=== PATIENT | male | born 1975 | race Caucasian/White ===

== ENCOUNTER 2021-03-01 17:02 | Observation (INO) | payer SELFPAY ==
[2021-03-01] VITALS (7 sets, daily range): BP systolic 140–159; BP diastolic 93–109; PULSE 72–92; RESP 15–23; TEMP 36.7–37.1; O2SAT 95–99; BMI 44.1
--- NOTE | 2021-03-01 17:16 | ED_ITS ---
Documented by User: Fer Denise DO 03/02/21 06:49 HPI - Chest Pain General: Chief Complaint: Chest Pain Stated Complaint: cp, diff breathing Time Seen by Provider: 03/01/21 17:13 History of Present Illness: HPI narrative: 45-year-old male presents emergency room complaining of chest pain for the last 2 hours. He has had a lot of nausea and vomiting as well. He was at rest when he began sitting watching television notes in his central portion of his chest radiating to his back and down into his abdomen at times. He has a lot of belching but he denies any dysuria urgency or frequency. He has no known history of coronary disease he does have a history of hypertension. He is a smoker. He has not recently been ill. He is not had any productive cough. He has been a little short of breath with the chest discomfort. MD complaint: chest pain Onset (ago): minute(s) Timing of current episode: constant Prior episodes: No Onset: during rest Pain location: substernal and left chest Pain radiation: none Quality: tightness Relieving factors: nothing Exacerbating factors: nothing Associated symptoms: Deny abdominal pain, dyspnea, fever(s), nausea or vomiting Review of Systems Const: Denies: fever(s), chills, body aches, change in appetite, fatigue or malaise ENMT: Denies: throat pain, ear or mastoid pain, nasal discharge or nasal conge stion Card: Denies: chest pain, edema, dyspnea on exertion or orthopnea Resp: Denies: dyspnea, productive cough or non-productive cough GI: Denies: abdominal pain, nausea, vomiting, hematemesis, coffee ground emesis, diarrhea, constipation, bloating, hematochezia or melena : Denies: flank pain, dysuria, urinary frequency or urinary urgency Skin/Breast: Denies: rash or pruritus Physical Exam Const: COMMON NORMALS: no acute distress GENERAL APPEARANCE: cooperative and comfortable ORIENTATION/CONSCIOUSNESS: Yes awake, Yes oriented to person, Yes oriented to place and Yes oriented to time HENMT: COMMON NORMALS: normocephalic, atraumatic and hearing grossly normal bilaterally HEAD & SCALP: normocephalic and atraumatic Eye: COMMON NORMALS: Equal, round and reactive pupils present, EOMs intact bilaterally, conjunctivae normal and no scleral icterus CONJUNCTIVA: Yes conjunctivae normal PUPIL: Yes Equal, round and reactive pupils present Neck/C-Spine: COMMON NORMALS: full ROM, no lymphadenopathy, supple and no JVD Lymph: LYMPHATIC: no lymphadenopathy noted and no lymphedema noted Resp: COMMON NORMALS: normal respiratory effort, No retractions, No use of accessory muscles and clear to auscultation bilaterally AUSCULTATION: clear to auscultation bilaterally Cardio: COMMON NORMALS: no JVD, regular rate, regular rhythm and No murmurs present (Cardio) RATE: regular rate RHYTHM: regular rhythm GI: COMMON NORMALS: Soft to palpation and No hepatosplenomegaly present AUSCULTATION: Yes normoactive bowel sounds PALPATION: Yes Soft to palpation, No Tenderness to palpation present (GI), No Guarding due to palpation present (GI) and Yes No hepatosplenomegaly present Extremity: COMMON NORMALS: normal to inspection, capillary refill normal, no clubbing, cyanosis or edema, no calf tenderness and no pedal edema Neuro: SENSORIUM/ORIENTATION: Yes oriented to person, Yes oriented to place and Yes oriented to time Skin: COMMON NORMALS: no rashes or lesions noted GENERAL SKIN EXAM: no rashes or lesions noted Course Vital Signs: Vital signs: Vital Signs Temperature 98.0 F 03/02/21 04:32 Pulse Rate 60 03/02/21 04:32 Respiratory Rate 18 03/02/21 04:32 Blood Pressure 122/74 03/02/21 04:32 Pulse Oximetry 98 03/02/21 04:32 MDM - Chest Pain MDM Narrative: Medical decision making narrative: Patient seen initially CT chest abdomen pelvis ordered as well as labs they are all pending pain medications given care turned over to Dr. Haq at change of shift see his notes for final diagnosis and disposition Lab Data: Labs: Lab Results 03/01/21 03/01/21 03/01/21 Range/Units 17:05 17:05 17:05 WBC 15.5 H (4.0-10.0) 10^3/ uL RBC 5.23 (4.1-5.3) 10^6/u L Hgb 15.2 (11.7-16.6) g/dL Hct 46.3 (42.0-52.0) % MCV 88.5 (80-94) fL MCH 29.1 (28.0-34.0) pg MCHC 32.8 (30.0-36.0) g/dL RDW 12.7 (12.1-15.1) % Plt Count 285 (130-400) 10^3/c mm MPV 9.3 (7.4-10.4) fL Neut % (Auto) 57.8 % Lymph % (Auto) 30.2 % [place] % (Auto) 10.4 % Eos % (Auto) 0.8 % Baso % (Auto) 0.5 % Neut # (Auto) 8.99 H (1.8-7.7) 10^3/u L Lymph # (Auto) 4.7 (0.8-4.8) 10^3/u L [place] # (Auto) 1.6 H (0.2-0.9) 10^3/u L Eos # (Auto) 0.1 (0.0-0.8) 10^3/u L Baso # (Auto) 0.1 (0.0-0.1) 10^3/u L Nucleated RBC % (a uto) 0 % Nucleated RBCs # 0.0 /100WBC Sodium 134 L (136-145) mmol/L Potassium 3.9 (3.5-5.1) mmol/L Chloride 99 (98-107) mmol/L Carbon Dioxide 23 (22-29) mmol/L Anion Gap 15.9 (5-19) BUN 9 (6-20) mg/dL Creatinine 0.7 (0.7-1.2) mg/dL GFR Calculation 120.9 (90-130) mL/min Glucose 107 (65-115) mg/dL Calculated Osmolal ity 277 L (285-295) mOsm/k g Calcium 8.5 (8.5-10.5) mg/dL Total Bilirubin 0.2 (0.15-1.2) mg/dL AST 18 (0-40) U/L ALT 17 (0-41) U/L Alkaline Phosphata se 110 (40-130) IU/L Troponin T Baselin e 6 (0-15) ng/L Troponin T 120 Min standing [place] (0-15) ng/L Delta Troponin T (0-10) ABS# Total Protein 6.4 L (6.6-8.7) g/dL Albumin 4.3 (3.5-5.2) g/dL Globulin 2.1 (1.3-4.6) g/dL Lipase 33 (13-60) U/L 03/01/21 Range/Units 19:42 WBC (4.0-10.0) 10^3/ uL RBC (4.1-5.3) 10^6/u L Hgb (11.7-16.6) g/dL Hct (42.0-52.0) % MCV (80-94) fL MCH (28.0-34.0) pg MCHC (30.0-36.0) g/dL RDW (12.1-15.1) % Plt Count (130-400) 10^3/c mm MPV (7.4-10.4) fL Neut % (Auto) % Lymph % (Auto) % [place] % (Auto) % Eos % (Auto) % Baso % (Auto) % Neut # (Auto) (1.8-7.7) 10^3/u L Lymph # (Auto) (0.8-4.8) 10^3/u L [place] # (Auto) (0.2-0.9) 10^3/u L Eos # (Auto) (0.0-0.8) 10^3/u L Baso # (Auto) (0.0-0.1) 10^3/u L Nucleated RBC % (a uto) % Nucleated RBCs # /100WBC Sodium (136-145) mmol/L Potassium (3.5-5.1) mmol/L Chloride (98-107) mmol/L Carbon Dioxide (22-29) mmol/L Anion Gap (5-19) BUN (6-20) mg/dL Creatinine (0.7-1.2) mg/dL GFR Calculation (90-130) mL/min Glucose (65-115) mg/dL Calculated Osmolal ity (285-295) mOsm/k g Calcium (8.5-10.5) mg/dL Total Bilirubin (0.15-1.2) mg/dL AST (0-40) U/L ALT (0-41) U/L Alkaline Phosphata se (40-130) IU/L Troponin T Baselin e (0-15) ng/L Troponin T 120 Min [place] 6.96 (0-15) ng/L Delta Troponin T 0.96 (0-10) ABS# Total Protein (6.6-8.7) g/dL Albumin (3.5-5.2) g/dL Globulin (1.3-4.6) g/dL Lipase (13-60) U/L EKG Data^: EKG 1: Attestation: I personally reviewed and interpreted this EKG as follows: EKG interpretation date: 03/01/21 EKG interpretation time: 17:10 Prior EKG tracings: not available for review Interpretation: Normal sinus rhythm with occasional PVCs rate of 77 normal DE interval no acute ST changes are noted Discharge Plan Discharge Patient Disposition: Admitted As Inpatient Admit Provider: Jasen Cintron Clinical Impression: Cholecystitis Condition: Stable Coding Level of Care Code ED Assisted Living Nursing Director for Chg Fwd Exam Comprehensive Documented by User: Ted Haq MD 03/01/21 22:20 HPI - Chest Pain General: Chief Complaint: Chest Pain Stated Complaint: cp, diff breathing Time Seen by Provider: 03/01/21 17:13 Physical Exam Const: COMMON NORMALS: no acute distress, patient oriented x3 and healthy appearing HENMT: COMMON NORMALS: normocephalic and atraumatic HEAD & SCALP: normocephalic and atraumatic Eye: COMMON NORMALS: Equal, round and reactive pupils present and EOMs intact bilaterally PUPIL: Yes Equal, round and reactive pupils present Neck/C-Spine: COMMON NORMALS: full ROM and supple Chest: COMMONS NORMALS: normal inspection of the chest and normal palpation of entire chest wall Resp: COMMON NORMALS: normal respiratory effort, No retractions, No use of accessory muscles and clear to auscultation bilaterally AUSCULTATION: clear to auscultation bilaterally Cardio: COMMON NORMALS: regular rate, regular rhythm and No murmurs present (Cardio) RATE: regular rate RHYTHM: regular rhythm GI: COMMON NORMALS: Normal to inspection, nondistended, normoactive bowel sounds present, Soft to palpation and no masses PALPATION: Yes Soft to palpation and Yes Tenderness to palpation present (GI) Details: RUQ Extremity: COMMON NORMALS: normal to inspection and full ROM Neuro: COMMON NORMALS: patient oriented x3, moves all extremities and no focal motor deficits Psych: COMMON NORMALS: mental status grossly normal, Normal thought process present and cooperative THOUGHT PROCESS: Normal thought process present Skin: COMMON NORMALS: no rashes or lesions noted and no wounds GENERAL SKIN EXAM: no rashes or lesions noted Course Vital Signs: Vital signs: Vital Signs Temperature 98.0 F 03/02/21 04:32 Pulse Rate 60 03/02/21 04:32 Respiratory Rate 18 03/02/21 04:32 Blood Pressure 122/74 03/02/21 04:32 Pulse Oximetry 98 03/02/21 04:32 MDM - Chest Pain MDM Narrative: Medical decision making narrative: Patient presents here with cholecystitis. Ultrasound and CT both showed findings consistent with cholecystitis. I spoke to surgeon Dr. Rodarte will admit at this time. Patient given IV antibiotics. Lab Data: Labs: Lab Results 03/01/21 03/01/21 03/01/21 Range/Units 17:05 17:05 17:05 WBC 15.5 H (4.0-10.0) 10^3/ uL RBC 5.23 (4.1-5.3) 10^6/u L Hgb 15.2 (11.7-16.6) g/dL Hct 46.3 (42.0-52.0) % MCV 88.5 (80-94) fL MCH 29.1 (28.0-34.0) pg MCHC 32.8 (30.0-36.0) g/dL RDW 12.7 (12.1-15.1) % Plt Count 285 (130-400) 10^3/c mm MPV 9.3 (7.4-10.4) fL Neut % (Auto) 57.8 % Lymph % (Auto) 30.2 % [place] % (Auto) 10.4 % Eos % (Auto) 0.8 % Baso % (Auto) 0.5 % Neut # (Auto) 8.99 H (1.8-7.7) 10^3/u L Lymph # (Auto) 4.7 (0.8-4.8) 10^3/u L [place] # (Auto) 1.6 H (0.2-0.9) 10^3/u L Eos # (Auto) 0.1 (0.0-0.8) 10^3/u L Baso # (Auto) 0.1 (0.0-0.1) 10^3/u L Nucleated RBC % (a uto) 0 % Nucleated RBCs # 0.0 /100WBC Sodium 134 L (136-145) mmol/L Potassium 3.9 (3.5-5.1) mmol/L Chloride 99 (98-107) mmol/L Carbon Dioxide 23 (22-29) mmol/L Anion Gap 15.9 (5-19) BUN 9 (6-20) mg/dL Creatinine 0.7 (0.7-1.2) mg/dL GFR Calculation 120.9 (90-130) mL/min Glucose 107 (65-115) mg/dL Calculated Osmolal ity 277 L (285-295) mOsm/k g Calcium 8.5 (8.5-10.5) mg/dL Total Bilirubin 0.2 (0.15-1.2) mg/dL AST 18 (0-40) U/L ALT 17 (0-41) U/L Alkaline Phosphata se 110 (40-130) IU/L Troponin T Baselin e 6 (0-15) ng/L Troponin T 120 Min [place] (0-15) ng/L Delta Troponin T (0-10) ABS# Total Protein 6.4 L (6.6-8.7) g/dL Albumin 4.3 (3.5-5.2) g/dL Globulin 2.1 (1.3-4.6) g/dL Lipase 33 (13-60) U/L /04/16 Range/Units 19:42 WBC (4.0-10.0) 10^3/ uL RBC (4.1-5.3) 10^6/u L Hgb (11.7-16.6) g/dL Hct (42.0-52.0) % MCV (80-94) fL MCH (28.0-34.0) pg MCHC (30.0-36.0) g/dL RDW (12.1-15.1) % Plt Count (130-400) 10^3/c mm MPV (7.4-10.4) fL Neut % (Auto) % Lymph % (Auto) % [place] % (Auto) % Eos % (Auto) % Baso % (Auto) % Neut # (Auto) (1.8-7.7) 10^3/u L Lymph # (Auto) (0.8-4.8) 10^3/u L [place] # (Auto) (0.2-0.9) 10^3/u L Eos # (Auto) (0.0-0.8) 10^3/u L Baso # (Auto) (0.0-0.1) 10^3/u L Nucleated RBC % (a uto) % Nucleated RBCs # /100WBC Sodium (136-145) mmol/L Potassium (3.5-5.1) mmol/L Chloride (98-107) mmol/L Carbon Dioxide (22-29) mmol/L Anion Gap (5-19) BUN (6-20) mg/dL Creatinine (0.7-1.2) mg/dL GFR Calculation (90-130) mL/min Glucose (65-115) mg/dL Calculated Osmolal ity (285-295) mOsm/k g Calcium (8.5-10.5) mg/dL Total Bilirubin (0.15-1.2) mg/dL AST (0-40) U/L ALT (0-41) U/L Alkaline Phosphata se (40-130) IU/L Troponin T Baselin e (0-15) ng/L Troponin T 120 Min [place] 6.96 (0-15) ng/L Delta Troponin T 0.96 (0-10) ABS# Total Protein (6.6-8.7) g/dL Albumin (3.5-5.2) g/dL Globulin (1.3-4.6) g/dL Lipase (13-60) U/L EKG Data^: EKG 1: Attestation: I personally reviewed and interpreted this EKG as follows: EKG interpretation date: 03/01/21 EKG interpretation time: 19:34 Interpretation: nsr hr [address] or t wave abnormalities qrs 98 qtc 409 Discharge Plan Discharge Patient Disposition: Admitted As Inpatient Admit Provider: Giurgius,Jasen Clinical Impression: Cholecystitis Condition: Stable Coding Level of Care Code ED Assisted Living Nursing Director for Chg Fwd Exam Comprehensive
--- NOTE | 2021-03-01 17:17 | XRR_ITS ---
PROCEDURE INFORMATION: Exam: XR Chest Exam date and time: 03/01/2021 5:26 PM Age: 45 years old Clinical indication: Chest pain; Prior surgery; Surgery type: Left shoulder TECHNIQUE: Imaging protocol: XR of the chest. Views: 1 view. COMPARISON: CR Chest 1 [place] [id number] 06/09/2017 11:41 AM FINDINGS: Lungs: Mild bronchial wall thickening changes. Coarsening of the pulmonary interstitium is similar to prior. No focal airspace consolidation. Mild decrease in lung volumes stable from prior. Pleural spaces: Unremarkable. No pleural effusion. No pneumothorax. Heart/Mediastinum: Unremarkable. No cardiomegaly. Bones/joints: Unremarkable. XR/XR chest 1V portable [id number] IMPRESSION: 1. No focal acute pulmonary disease. 2. No significant change from comparison.
--- NOTE | 2021-03-01 17:17 | ECG_ITS ---
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 Measurements Intervals [place] Rate: 77 P: 51 ME: 165 QRS: 20 QRSD: 98 T: 41 QT: 358 QTc: 407 Interpretive Statements SINUS RHYTHM WITH OCCASIONAL SUPRAVENTRICULAR PREMATURE COMPLEXES Compared to ECG 06/09/2017 14:35:50 No significant changes Electronically Signed On 03-01-2021 20:49:53 CDT by Lavinia Davis M.D. [id number] f
[2021-03-01] MEDS: morphine 4 mg/mL SDV 1 mL IVP (17:27)
[2021-03-01] MEDS: ondansetron 2 mg/ML SDV 2 mL 4 MG IVP (17:27)
--- NOTE | 2021-03-01 17:29 | CTR_ITS ---
PROCEDURE INFORMATION: Exam: CTA Chest With Contrast Exam date and time: 03/01/2021 5:29 PM Age: 45 years old Clinical indication: Abdominal pain; Localized; Upper; Chest pain; Additional info: Chest pain radiating into tthe back and into the stomach TECHNIQUE: Imaging protocol: Computed tomographic angiography of the chest with contrast. 3D rendering (Not supervised by radiologist): MIP and/or 3D reconstructed images were created by the technologist. Radiation optimization: All CT scans at this facility use at least one of these dose optimization techniques: automated exposure control; mA and/or kV adjustment per patient size (includes targeted exams where dose is matched to clinical indication); or iterative reconstruction. Contrast material: OMNI 350; Contrast volume: 190 ml; Contrast route: INTRAVENOUS (IV); COMPARISON: CR XR chest 1V portable [id number] 03/01/2021 5:57 PM RADIATION DOSE METRICS: Total DLP (mGy-cm): 3242.89 FINDINGS: Pulmonary arteries: The pulmonary arteries are adequately opacified for evaluation to the subsegmental level. There is no filling defect to suggest embolism. Aorta: The aorta is unremarkable. There is no aneurysm. Lungs: Lungs are clear. Pleural spaces: There is no pleural effusion or pneumothorax. Heart: The heart is unremarkable. There is no pericardial effusion. Lymph nodes: There is no mediastinal or hilar lymphadenopathy. There are calcified lymph nodes in the kristal bilaterally. Bones/joints: Bones are unremarkable. Soft tissues: The extrathoracic soft tissues are unremarkable. IMPRESSION: No pulmonary embolism. PROCEDURE INFORMATION: Exam: CT Abdomen And Pelvis With Contrast Exam date and time: 03/01/2021 5:29 PM Age: 45 years old Clinical indication: Abdominal pain; Localized; Upper; Chest pain; Additional info: Chest pain radiating into tthe back and into the stomach TECHNIQUE: Imaging protocol: Computed tomography of the abdomen and pelvis with contrast. Radiation optimization: All CT scans at this facility use at least one of these dose optimization techniques: automated exposure control; mA and/or kV adjustment per patient size (includes targeted exams where dose is matched to clinical indication); or iterative reconstruction. Contrast material: OMNI 350; Contrast volume: 190 ml; Contrast route: INTRAVENOUS (IV); COMPARISON: CR XR chest 1V portable [id number] 03/01/2021 5:57 PM RADIATION DOSE METRICS: Total DLP (mGy-cm): 3242.89 FINDINGS: Lungs: Lung bases are clear. Liver: The liver is normal. Gallbladder and bile ducts: Small stones are seen in the gallbladder neck. The gallbladder is distended. The wall is thin. There is no pericholecystic edema. There is no intrahepatic or extrahepatic bile duct dilation. Pancreas: The pancreas is unremarkable. Spleen: The spleen is unremarkable. Adrenal glands: The adrenal glands are unremarkable. Kidneys and ureters: The kidneys are unremarkable. No hydronephrosis or stones. No ureteral dilation. Stomach and bowel: The stomach is decompressed, preventing meaningful evaluation of wall thickness. The small bowel is nondilated. There is mild sigmoid colonic diverticulosis without evidence of diverticulitis. Appendix: The appendix is not visible. Intraperitoneal space: There is no free air or significant intraperitoneal free fluid. Vasculature: The aorta is unremarkable. There is no aneurysm. 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 The portal, splenic and superior mesenteric veins are patent. Lymph nodes: There is no lymphadenopathy in the retroperitoneum, mesentery, pelvis or inguinal regions. Urinary bladder: The urinary bladder is unremarkable. Reproductive: The prostate and seminal vesicles are unremarkable. Bones/joints: There is mild degenerative disease in the lumbar spine. The pelvis and proximal femora are intact. Soft tissues: The abdominal wall is intact. CT/CT angio chest w abd pel w con IMPRESSION: Distended gallbladder containing small stones. Findings are equivocal for acute cholecystitis. There is no gallbladder wall thickening or pericholecystic edema. Radiation Dose CTDIVOL = (mGy): DLP = 3242.89~3242.89 (mGy-cm)
[2021-03-01 17:35] LABS: Basophils # 0.1 10^3/uL (0.0-0.1); Basophils % 0.5 %; Eosinophils # 0.1 10^3/uL (0.0-0.8); Eosinophils % 0.8 %; Hematocrit 46.3 % (42.0-52.0); Hemoglobin 15.2 g/dL (11.7-16.6); Lymphocytes # 4.7 10^3/uL (0.8-4.8); Lymphocytes % 30.2 %; Mean Corpuscular HGB Conc 32.8 g/dL (30.0-36.0); Mean Corpuscular Hemoglobin 29.1 pg (28.0-34.0); Mean Corpuscular Volume 88.5 fL (80-94); Mean Platelet Volume 9.3 fL (7.4-10.4); Monocytes # 1.6 10^3/uL (0.2-0.9); Monocytes % 10.4 %; Neutrophils # 8.99 10^3/uL (1.8-7.7); Neutrophils % 57.8 %; Nucleated Red Blood Cells % 0 %; Platelet Count 285 10^3/cmm (130-400); Red Blood Count 5.23 10^6/uL (4.1-5.3); Red Cell Distribution Width 12.7 % (12.1-15.1); White Blood Count 15.5 10^3/uL (4.0-10.0)
[2021-03-01 17:57] LABS: Troponin(5th) Baseline 6 ng/L (0-15)
[2021-03-01 18:05] LABS: Alanine Aminotransferase 17 U/L (0-41); Albumin Level 4.3 g/dL (3.5-5.2); Alkaline Phosphatase 110 IU/L (40-130); Anion Gap 15.9 (5-19); Aspartate Amino Transferase 18 U/L (0-40); Blood Urea Nitrogen 9 mg/dL (6-20); Calcium 8.5 mg/dL (8.5-10.5); Carbon Dioxide 23 mmol/L (22-29); Chloride 99 mmol/L (98-107); Globulin 2.1 g/dL (1.3-4.6); Glomerular Filtration Rate 120.9 mL/min (90-130); Glucose 107 mg/dL (65-115); Lipase 33 U/L (13-60); Osmolality Calculated 277 mOsm/kg (285-295); Potassium 3.9 mmol/L (3.5-5.1); Sodium 134 mmol/L (136-145); Total Bilirubin 0.2 mg/dL (0.15-1.2); Total Protein 6.4 g/dL (6.6-8.7)
[2021-03-01] MEDS: iohexol 350 mg/mL 100 mL Btl IV ×2 (18:41)
--- NOTE | 2021-03-01 19:17 | ECG_ITS ---
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 Measurements Intervals [place] Rate: 81 P: 46 MN: 159 QRS: 6 QRSD: 98 T: 38 QT: 372 QTc: 433 Interpretive Statements SINUS RHYTHM POSSIBLE LEFT ATRIAL ENLARGEMENT [-0.1mV P WAVE IN V1/V2] Compared to ECG 03/01/2021 17:10:40 No significant changes Electronically Signed On 03-01-2021 20:53:42 CDT by Lavinia Davis M.D. [id number]
--- NOTE | 2021-03-01 19:34 | USR_ITS ---
PROCEDURE INFORMATION: Exam: US Abdomen, Limited; Right Upper Quadrant Exam date and time: 03/01/2021 7:56 PM Age: 45 years old Clinical indication: Abdominal pain; Acute; Patient HX: Sudden on set pain, PT thought mi. TECHNIQUE: Imaging protocol: US abdomen. Real time ultrasound with image documentation. Limited exam focused on the right upper quadrant. COMPARISON: CT angio chest w abd pel w con 03/01/2021 6:42 PM FINDINGS: Liver: There is diffuse increased echogenicity of the liver parenchyma and attenuation of sound in the deep portions of the liver obscuring fine hepatic detail, consistent with fatty infiltration. Gallbladder: The gallbladder is dilated and contains stones. The wall is mildly diffusely thickened. There is subtle pericholecystic edema between the liver and gallbladder. Sonographic Breaux sign is negative. Common bile duct: The common bile duct measures 8 mm diameter in the natalie hepatis. Pancreas: Obscured Right kidney: The right kidney is unremarkable. Aorta: Visible portion of the aorta is unremarkable. Inferior vena cava: Visible portion of the IVC is unremarkable. US/US gall bladder [id number] IMPRESSION: 1. Suspicious findings for acute cholecystitis. 2. Incidental findings above.
[2021-03-01] MEDS: HYDROmorphone 1 mg/mL INJ 1 mL IVP (20:00)
[2021-03-01 20:09] LABS: Troponin 5 2HR 6.96 ng/L (0-15); Troponin 5 2HR Delta 0.96 ABS# (0-10)
[2021-03-01] MEDS: levofloxacin-dextrose 5 % 750 MG/150 ML PREMIX 100 MG IV (22:24)
[2021-03-01 23:45] LABS: Troponin 5 6HR Delta 0 ng/L (0-12)
[2021-03-02] VITALS: BP 113/77; PULSE 81; RESP 22; TEMP 36.6; O2SAT 96
[2021-03-02 00:16] VITALS: RESP 18
[2021-03-02] MEDS: morphine 4 mg/mL SDV 1 mL IVP (00:16)
[2021-03-02] MEDS: sodium chloride 0.9% 1,000 ML 100 ML IV (00:17)
[2021-03-02 04:32] VITALS: BP 122/74; PULSE 60; RESP 18; TEMP 36.7; O2SAT 98
--- NOTE | 2021-03-02 04:36 | P.HP_ITS ---
Providers/Chief Complaint Admitting Physician: Jasen Cintron MD Chief Complaint: cp, diff breathing History of Present Illness Chief Complaint: Abdominal pain History of present illness: Mr. Luis Veronica is a 45 year old male presents to the emergency department with worsening abdominal pain and shortness of breath abdominal pain that started in the epigastric area referred to the retrosternal region. Initially the patient thought that he had a heart attack. Further work-up in the ER showed leukocytosis,patient describes the pain as being sharp and nothing seems to provoke that and pain medication helped. No other associated symptoms in the form of nausea vomiting fevers or chills and the patient did not have issues with gallbladder disease in the past. CT scan of the chest abdomen pelvis was done and showed IMPRESSION: No pulmonary embolism. Liver: The liver is normal. Gallbladder and bile ducts: Small stones are seen in the gallbladder neck. The gallbladder is distended. The wall is thin. There is no pericholecystic edema. There is no intrahepatic or extrahepatic bile duct dilation. Pancreas: The pancreas is unremarkable. Spleen: The spleen is unremarkable. Adrenal glands: The adrenal glands are unremarkable. Kidneys and ureters: The kidneys are unremarkable. No hydronephrosis or stones. No ureteral dilation. Stomach and bowel: The stomach is decompressed, preventing meaningful evaluation of wall thickness. The small bowel is nondilated. There is mild sigmoid colonic diverticulosis without evidence of diverticulitis. Appendix: The appendix is not visible. Intraperitoneal space: There is no free air or significant intraperitoneal free fluid. Vasculature: The aorta is unremarkable. There is no aneurysm. 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 The portal, splenic and superior mesenteric veins are patent. Lymph nodes: There is no lymphadenopathy in the retroperitoneum, mesentery, pelvis or inguinal regions. Urinary bladder: The urinary bladder is unremarkable. Reproductive: The prostate and seminal vesicles are unremarkable. Bones/joints: There is mild degenerative disease in the lumbar spine. The pelvis and proximal femora are intact. Soft tissues: The abdominal wall is intact. CT/CT angio chest w abd pel w con IMPRESSION: Distended gallbladder containing small stones. Findings are equivocal for acute cholecystitis. There is no gallbladder wall thickening or pericholecystic edema. Ultrasound of the liver and gallbladder showed Liver: There is diffuse increased echogenicity of the liver parenchyma and attenuation of sound in the deep portions of the liver obscuring fine hepatic detail, consistent with fatty infiltration. Gallbladder: The gallbladder is dilated and contains stones. The wall is mildly diffusely thickened. There is subtle pericholecystic edema between the liver and gallbladder. Sonographic Breaux sign is negative. Common bile duct: The common bile duct measures 8 mm diameter in the natalie hepatis. Pancreas: Obscured Right kidney: The right kidney is unremarkable. Aorta: Visible portion of the aorta is unremarkable. Inferior vena cava: Visible portion of the IVC is unremarkable. US/US gall bladder [id number] IMPRESSION: 1. Suspicious findings for acute cholecystitis. 2. Incidental findings above. General surgery was consulted for further evaluation potential management Review of Systems General: Reports: 10 or more systems reviewed and unremarkable except in HPI and below Medications/Allergies Home Medications Medication Instructions Recorded Confirmed Last Taken Type amlodipine 5 mg PO DAILY 03/01/21 03/01/21 03/01/21 History hydrochlorothiazide 12.5 mg PO DAILY 03/01/21 03/01/21 03/01/21 History hydroxyzine HCl 10 - 20 mg PO BID PRN 03/01/21 03/01/21 03/01/21 History rosuvastatin 10 mg PO BEDTIME 03/01/21 03/01/21 02/28/21 History levofloxacin 750 mg PO Q24H 10 Days #10 tab 03/02/21 Unknown Rx Allergies Allergy/AdvReac Type Severity Reaction Status Date / Time diclofenac [From Voltaren] Allergy ALGY-Anaphy Verified 03/02/21 05:00 laxis gabapentin Allergy ALGY-Anaphy Verified 03/02/21 05:00 laxis Penicillins Allergy ALGY-Anaphy Verified 03/02/21 05:00 laxis Vitals/I&O/Wt Last Vital Signs Temp 98.0 F 03/02/21 04:32 Pulse 60 03/02/21 04:32 Resp 18 03/02/21 04:32 BP 122/74 03/02/21 04:32 Pulse Ox 98 03/02/21 04:32 03/01/21 03/01/21 03/02/21 14:59 22:59 06:59 Intake Total 0 / 0 Balance 0 / 0 Weight last 48 hrs Weight 290 lb Physical Exam Narrative: EXAM NARRATIVE: Patient is conscious alert oriented X3 BMI 44 Head and neck examination PERRLA no masses no cervical lymphadenopathy no jaundice Cardiac examination audible S1-S2 no murmurs no gallops no arrhythmias Chest is clear bilateral,abscence of Rhonchi or wheezes,no surgical emphysema Abdomen nontender nondistended soft no organomegaly guarding or rigidity/no signs of peritonitis Morbidly obese Extremities no cyanosis no clubbing no edema Data : 03/02/21 05:22 03/02/21 05:22 A&P Assessment and plan (1) Cholecystitis: After thorough history physical examination and reviewing the chart and images with my personal interpretation there are subtle changes of the gallbladder and given the fact that the patient is not complaining of any abdominal pain at this point and his physical examination shows no tenderness whatsoever and negative Breaux sign. I did discuss with the patient about p otential options of same hospitalization lap cholecystectomy versus outpatient and the patient is more interested to have his surgery done on elective basis particularly when he knew from me that his liver is enlarged due to fatty component and he would benefit from downsizing the volume of the liver by placing him on liquid protein diet for 10 days at least prior to surgery. P WBC count showed trending down and will plan to discharge patient home today on antibiotics and will follow up with me over telehealth medicine in 2 weeks to arrange for elective laparoscopic cholecystectomy. Plan of care has been discussed with the patient and his spouse and both agreed on that. Focus on low calorie and low-fat diet Assurance and education All questions have been answered and all concerns have been addressed to patient's satisfaction. Status: Acute Attestations Medical Necessity Statement*: Observation status for abdominal pain and clinical monitoring with the benefit of IV antimicrobial therapy. Time Spent in Patient Care: 16 - 35 minutes (>than 50% of time spent in counselling and/or direct pt care on unit) . Coding Level of Care Code Acute Oracle Applications Analyst for Roxy Victor Diagnoses Cholecystitis K81.9
[2021-03-02 05:30] LABS: Hematocrit 43.1 % (42.0-52.0); Hemoglobin 14.5 g/dL (11.7-16.6); Mean Corpuscular HGB Conc 33.6 g/dL (30.0-36.0); Mean Corpuscular Hemoglobin 29.7 pg (28.0-34.0); Mean Corpuscular Volume 88.3 fL (80-94); Mean Platelet Volume 9.1 fL (7.4-10.4); Platelet Count 257 10^3/cmm (130-400); Red Blood Count 4.88 10^6/uL (4.1-5.3); Red Cell Distribution Width 12.7 % (12.1-15.1); White Blood Count 11.5 10^3/uL (4.0-10.0)
[2021-03-02 05:52] LABS: Absolute Eosinophils 0.1 10^3/cmm (0.0-0.7); Absolute Segmented Neutrophil 5.9 10/cmm (1.6-7.1); Eosinophils 1 %; Lymphocytes 41 %; Lymphocytes Absolute 4.7 10^3/cmm (1.2-3.4); Monocytes Absolute 0.8 10^3/cmm (0.1-0.6); Segmented Neutrophils 51 %; Total Cells Counted 100 (0-100)
[2021-03-02 05:53] LABS: Absolute Neutrophil 5.9 10^3/cmm (1.4-6.5); Platelet Estimate Normal (Normal)
[2021-03-02 06:00] LABS: Alanine Aminotransferase 12 U/L (0-41); Albumin Level 3.8 g/dL (3.5-5.2); Alkaline Phosphatase 93 IU/L (40-130); Anion Gap 12.9 (5-19); Aspartate Amino Transferase 17 U/L (0-40); Blood Urea Nitrogen 9 mg/dL (6-20); Carbon Dioxide 26 mmol/L (22-29); Chloride 104 mmol/L (98-107); Globulin 2.3 g/dL (1.3-4.6); Glomerular Filtration Rate 120.9 mL/min (90-130); Glucose 112 mg/dL (65-115); Osmolality Calculated 287 mOsm/kg (285-295); Potassium 3.9 mmol/L (3.5-5.1); Sodium 139 mmol/L (136-145); Total Bilirubin 0.2 mg/dL (0.15-1.2); Total Protein 6.1 g/dL (6.6-8.7)
[2021-03-02 08:00] VITALS: BP 120/75; PULSE 63; RESP 18; TEMP 36.8; O2SAT 95
--- NOTE | 2021-03-02 09:18 | PM.SDS ---
Short Stay Summary Providers Date of Admit/Discharge: 03/02/21 Attending Provider: Jasen Cintron MD Chief Complaint: cp, diff breathing HPI History of Present Illness Full H&P per chart Review of Systems General: Reports: 10 or more systems reviewed and unremarkable except in HPI and below Home Meds/Allergies Home Medications and Allergies Home Medications Medication Instructions Recorded Confirmed Type amlodipine 5 mg PO DAILY 03/01/21 03/01/21 History hydrochlorothiazide 12.5 mg PO DAILY 03/01/21 03/01/21 History hydroxyzine HCl 10 - 20 mg PO BID PRN 03/01/21 03/01/21 History rosuvastatin 10 mg PO BEDTIME 03/01/21 03/01/21 History Allergies Allergy/AdvReac Type Severity Reaction Status Date / Time diclofenac [From Voltaren] Allergy ALGY-Anaphy Verified 03/02/21 05:00 laxis gabapentin Allergy ALGY-Anaphy Verified 03/02/21 05:00 laxis Penicillins Allergy ALGY-Anaphy Verified 03/02/21 05:00 laxis PFSH Acute PFSH: Medical History Cholecystitis Fatty liver Vitals/I&O/Wt Last Vital Signs Temp 98.2 F 03/02/21 08:00 Pulse 63 03/02/21 08:00 Resp 18 03/02/21 08:00 BP 120/75 03/02/21 08:00 Pulse Ox 95 03/02/21 08:00 03/01/21 03/02/21 03/02/21 22:59 06:59 14:59 Intake Total 0 / 0 Balance 0 / 0 Weight last 48 hrs Weight 290 lb Physical Exam Narrative: EXAM NARRATIVE: Patient is conscious alert oriented X3 BMI 44 Head and neck examination PERRLA no masses no cervical lymphadenopathy no jaundice Cardiac examination audible S1-S2 no murmurs no gallops no arrhythmias Chest is clear bilateral,abscence of Rhonchi or wheezes,no surgical emphysema Abdomen nontender nondistended soft no organomegaly guarding or rigidity/no signs of peritonitis Morbidly obese Extremities no cyanosis no clubbing no edema Hospital Course Hospital Course Patient overall did well and maintained to have stable vital signs and pain-free. Tolerated p.o. intake and comfortable by being discharged home. Discharge Summary 45 years old gentleman with history of shortness of breath and upper abdominal pain that responded to conservative measures and will be discharged home today on oral antibiotics and the plan to follow-up with me in the office in 2 weeks via telehealth to arrange for elective laparoscopic cholecystectomy. SSS Data Data Completed and Pending: Completed Studies During Hospitalization Category Date Time Status CT angio chest w abd pel w con Stat Cat Scan 03/01/21 17:29 Completed XR chest 1V natalie ble [id number] Stat Exams 03/01/21 17:17 Completed US gall bladder 7 [id number] Urgent Ultrasound 03/01/21 19:34 Completed Diagnoses at Discharge Discharge Diagnosis (1) Cholecystitis: Status: Inactive Discharge Plan Discharge Patient Disposition: Home Condition: Stable Prescriptions: New levofloxacin 750 mg tablet 750 mg PO Q24H 10 Days Qty: 10 RF: 0 Continued amlodipine 5 mg tablet 5 mg PO DAILY RF: 0 hydrochlorothiazide 12.5 mg capsule 12.5 mg PO DAILY RF: 0 hydroxyzine HCl 10 mg tablet 10 - 20 mg PO BID PRN (Reason: Anxiety) RF: 0 rosuvastatin 10 mg Tablet 10 mg PO BEDTIME RF: 0 Discharge Orders: Discharge Order (Routine); Ordered 03/02/21 Ordered By: Jasen Cintron Referrals: Jasen Cintron MD [Physician] - 03/15/21 4:00 pm (Dr. Cintron requested a telehealth visit. If you have any questions, please call them at [phone].) Discharge Diet: As Directed Discharge Activity: Increase activity as tolerated Patient Instructions: Levofloxacin (By mouth), Cholecystitis (DC), Opioid Safety Attestations Medical Necessity Statement*: Observation status for conservative measures of abdominal pain. Time Spent in Patient Care*: greater than 30 min Specific Discharge Activities: Specific discharge activities: educating patient and educating and/or supporting family/caregiver Status at Discharge: Cognitive status at discharge: cognitively intact, Behavioral status at discharge: cooperative, Functional status at discharge: independent ambulation Overall status at discharge: patient is progressing back to baseline Quality Metrics Clinical Quality Measures: During this hospital stay, did patient experience: None Coding Level of Care Code Acute Metals Analyst for [employer]oxy [employer] Diagnoses Cholecystitis K81.9
[2021-03-02 10:22] VITALS: BP 120/75; PULSE 63; RESP 18; TEMP 36.8; O2SAT 95
--- NOTE | 2021-03-02 10:27 | PC.NURSE ---
pt iv taken out and intact, discharge instructions explained and questions answered.
== END 2021-03-02 10:28 | disposition home or self-care (01) ==
LOC: ER 22:19 → MEDSURG 23:16
PROVIDERS: Family Medicine; Admitting Provider Surgery; Emergency Provider Emergency Medicine; Visit Provider Surgery
DX: K81.9 Cholecystitis, unspecified (principal)
CPT/HCPCS: 36415; 71045; 71275; 74177; 76705; 80053; 83690; 84484; 85007; 85025; 85027; 93005; 96361; 96365; 96375; 96376; 99285; G0378; J1170; J1956; J2270; J2405; J7030; Q9967

== ENCOUNTER 2021-05-23 08:03 | Day surgery (SDC) | payer BC, SELFPAY ==
[2021-05-22 10:22] VITALS: BMI 40.1
[2021-05-23] VITALS (14 sets, daily range): BP systolic 92–129; BP diastolic 56–88; PULSE 63–110; RESP 12–21; TEMP 36.3–36.6; O2SAT 94–97
[2021-05-23] MEDS: acetaminophen 1,000 MG/100 ML PIGGYBACK 400 MG IV (08:45)
[2021-05-23] MEDS: sodium chloride 0.9% 1,000 ML 30 ML IV (08:54)
[2021-05-23] MEDS: heparin 5,000 unit/mL INJ 1 mL 3000 UNIT SUBCUT (08:55)
--- NOTE | 2021-05-23 09:23 | W.PM.OPSFHP ---
Same Day Surgery H&P Indication for Procedure/HPI DATE OF PROCEDURE: May 23, 2021 CHIEF COMPLAINT/INDICATIONFOR SURGICAL PROCEDURE: Gallbladder issues PREOP DIAGNOSIS: Biliary colic PLANNED PROCEDRUE: Operation Date: 05/23/21 09:30 Proposed Procedures p Laparoscopic [place] 72269 K81.9(Not Applicable) - Jasen Cintron MD Patient comes today as a follow-up after recent hospitalization for component of cholecystitis associated with gallbladder stones. Patient was treated conservatively and he comes today for follow-up and he is showing interest to proceed with gallbladder surgery. He reports that he had lost some weight Interval history 05/23/2021 Patient comes today for elective laparoscopic cholecystectomy and he did liquid protein diet and he lost about 10 pounds ROS All systems have been reviewed negative except as per the above or per problem list Medications/Allergies* Home Medications Medication Instructions Recorded Confirmed Type amlodipine 5 mg PO DAILY 03/01/21 05/23/21 History hydrochlorothiazide 12.5 mg PO DAILY 03/01/21 05/23/21 History hydroxyzine HCl 10 - 20 mg PO BID PRN 03/01/21 05/23/21 History rosuvastatin 10 mg PO BEDTIME 03/01/21 05/23/21 History Aspirin Low Dose 81 mg PO DAILY 05/22/21 05/22/21 History Allergies/Adverse Reactions Allergy/AdvReac Type Severity Reaction Status Date / Time diclofenac [From Voltaren] Allergy ALGY-Anaphy Verified 05/23/21 09:24 laxis gabapentin Allergy ALGY-Anaphy Verified 05/23/21 09:24 laxis Penicillins Allergy ALGY-Anaphy Verified 05/23/21 09:24 laxis Current Medications: Generic Name Dose Route Start Last Admin Trade Name Freq PRN Reason Stop Dose Admin Sodium Chloride 1,000 mls @ 30 mls/hr 05/23/21 08:15 05/23/21 08:54 Sodium Chloride 0.9% IV 05/24/21 08:14 30 mls/hr .Q24H TONY Administration Pertinent History/Comorbid Conditions* Medical History (Updated 03/02/21 @ 18:51 by Jasen Cintron MD) Cholecystitis Fatty liver Family History (Updated 03/28/21 @ 13:05 by Angela Aguilar) Diabetes CAD (coronary artery disease) Grandfather Cancer Hypertension Stroke Social History Smoking and tobacco status: current every day smoker cigarettes Second hand smoke exposure: No Alcohol intake: never Lives independently: Yes Household members: spouse and children Marital status: Pertinent Exam Findings alert, oriented x 3, clear to auscultation bilaterally, regular rate & rhythm and procedure specific exam findings (Abdominal examination nontender nondistended soft) Recommendations Surgery/Procedure today (Laparoscopic cholecystectomy) Other Plans: Plan of care; After thorough history physical examination and reviewing the chart and images with my personal intrepreatation.I counseled the patient for laparoscopic cholecystectomy possible open, indications risks including but not limited injury to the common bile duct and/or other viscera,that may require potential future surgical interventions including but not limited to ERCP and or laparatomy that may include Hepatobiliary surgery.Benefits and alternatives all discussed with the patient, and patient did agree to proceed accordingly. All questions have been answered and all concerns have been addressed to patient's satisfaction. Rationale was carefully and clearly discussed with the patient.Appropriate informed consent have been reviewed and signed. Coding Level of Care Code Acute Port Patrol Officer for Roxy Victor
[2021-05-23] MEDS: clindamycin 900 MG/50 ML PREMIX 100 MG IV (09:33)
[2021-05-23] MEDS: lidocaine 2% INJ 20 mL INJECTION (10:20)
--- NOTE | 2021-05-23 10:59 | P.OP_ITS ---
Operative Report Date of procedure: May 23, 2021 Pre-op Diagnosis: Biliary colic Post-op diagnosis: same Post-op Findings: Chronic cholecystitis with hepatomegaly Procedure Done: Laparoscopic cholecystectomy Specimens removed/disposition: Gallbladder and contents Surgeon: Jasen Cintron Functional Skills Tutor: Surgical ger Turner Circulating nurse Johanna Alvarez Anesthesia: General (GETA PROGRAM SUPPORT CLERK Sundar) Estimated blood loss (mL): 10 Condition: stable Disposition: same day Brief History: Symptomatic cholelithiasis Procedure: Patient was identified in the holding area and taken back to the operative suite, placed in supine position intubated by anesthesia . Time-out was done verifying the patient's name/date of /planned procedure and destination after the procedure, all were in agreement. SCDs confirmed to be functioning, preoperative antibiotics administered per protocol, and beta petra protocol was confirmed. Patient was appropriately secured to the table, footboard was applied to the OR table, before prep and drape anesthesia was asked to tilt the table back and forth to make sure that the patient is appropriately secured and she was. Prep and drape of the abdomen was done under the usual sterile technique, followed by that supraumbilical skin incision,skin incision was done by a 11 blade knife, and stay sutures were applied to the fascia and Diane trocar technique was used to enter the abdominal without injuring any abdominal viscera, started by low flow gas insufflation followed by a high flow, started with a 10 mm laparoscope and under direct vision there was no evidence of any injuries, the scope then switched to a 30? ,10 millimeter scope and under direct visualization 5 millimeter trocar was inserted in the epigastric region followed by two 5 mm trocars were inserted in the right upper quadrant that was done after injection of local lidocaine 2% at all incision sites. Gallbladder showed chronic calculus cholecystitis with hepatomegaly likely due to fatty liver. Patient was then positioned in the head up and tilted to the left Ratcheted forceps were introduced into the lateral most 5mm port and was applied unto the fundus of the gallbladder cephalad and using 5 mm tenaculum forceps the infundibulum of the gallbladder was retracted laterally.Scarring and adhesions were appreciated at the Calot's triangle that was dissected carefully. Using [place] forceps then L-hook cautery to dissect the peritoneum overlying the Calot's triangle which was then opened medially and laterally until the cystic duct and the cystic artery were skeletonized. Dissection was carried along the body of the gallbladder and after ensuring critical view of safety was identified. Cystic duct and cystic artery where seen connected to the gallbladder. Clips were applied on the cystic duct towards the common bile duct 1 towards the gallbladder then divided is in sharp scissors, 2 clips were then applied onto the cystic artery and 1 towards the gallbladder and divided by sharp scissors. Additional traversing vessel was clipped and divided. Dissection was then carried along of the gallbladder from the gallbladder fossa using cautery as well as sharp dissection with heat energy. The gallbladder then was dissected out from the gallbladder fossa totally , cholecystectomy was then achieved and was placed in an Endo Catch bag and then retrieved from the Diane trocar site under direct visualization using a 5 mm 30? scope through the epigastric trocar, specimen was then passed to the circulating nurse to go for permanent pathology,irrigation and hemostasis was done to the gallbladder fossa after hemostasis was secured, final survey laparoscopy was done that showed no injuries. Suction irrigation was obtained. The supraumbilical fascial defect was then closed using interrupted 1 PDS sutures using a fascial closure device ;Travon Paredes under direct visualization Gas was allowed to deflate,Trocars were then taken out under direct vision there was no evidence of bleeding Specimen was passed to the circulating nurse for permanent pathology. No drains were placed and the supraumbilical incision as well as all trocar sites were closed BY 3-0 Vicryl followed by 4-0 Monocryl to approximate the skin edges of the supraumbilical incision, dressing was applied in the form of Dermabond and the patient patient got extubated and was taken to recovery area in a stable condition. Count of sponges, needles and instruments were completed at the end of the procedure I was present for the whole entire procedure.
--- NOTE | 2021-05-23 11:20 | P.PCN_ITS ---
PACU note PACU note: VSS, Good respiratory effort, report to HIGH SCHOOL MATH TUTOR Post-Anesthesia Exam: awake
--- NOTE | 2021-05-23 11:20 | PM.PACU ---
PACU note PACU note: VSS, Good respiratory effort, report to PRESS CLIPPER Post-Anesthesia Exam: awake
[2021-05-23] MEDS: ondansetron 2 mg/ML SDV 2 mL 4 MG IVP (11:31)
[2021-05-23] MEDS: fentaNYL 50 mcg/mL INJ 2mL IVP ×2 (11:32→11:46)
[2021-05-23] MEDS: HYDROmorphone 1 mg/mL INJ 1 mL 0.25 MG IVP (11:52)
[2021-05-23] MEDS: HYDROcodone-acetaminophen 5-325 mg Tablet 1 TAB PO (12:23)
--- NOTE | 2021-05-23 12:52 | ANES.PREANE2 ---
Pre-Anesthetic Assessment Pre-Anesthetic Assessment: Height/Weight: Height 1.78 m Weight 127.006 kg Temp Pulse Resp BP Pulse Ox 98 F 91 16 92/56 94 05/23/21 12:05 05/23/21 12:05 05/23/21 12:05 05/23/21 12:05 05/23/21 12:05 Preop Diagnosis: Biliary colic Proposed Procedure: Operation Date: 05/23/21 09:30 Proposed Procedures p Laparoscopic [place]cyst[place] open 21097 K81.9(Not Applicable) - Jasen Cintron MD Was Beta Mikey taken within 24 hours: N/A Was Clonidine taken within 24 hours: N/A Last intake: Intake Last Liquid Date 05/22/21 Last Liquid Time 22:00 Last Solid Date 05/22/21 Last Solid Time 22:00 Social: Social History: Tobacco and No alcohol Exam: Pre-Anes Outpt Exam: alert, oriented x 3, clear to auscultation bilaterally and regular rate & rhythm Airway: Submandibular: WNL Cervical ROM: WNL MP: 2 Dentition: Full CV/HEM: CV/HEM: HTN Metabolic: Metabolic: Hyperlipidemia and Morbid obesity Anesthetic Plan: ASA status: 3 Anesthesia: General Risk of > 500 ml blood loss (7ml/kg in children): No Meds/Allergies Current Medications: Current Medications Generic Name Dose Route Start Last Admin Trade Name Freq PRN Reason Stop Dose Admin Hydromorphone HCl 0.25 mg 05/23/21 09:50 05/23/21 11:52 Hydromorphone 1 Mg/Ml Inj 1 Ml IVP 05/24/21 09:50 0.25 mg Q10M PRN Administration Pain level 4-6 PA CU Phase I Sodium Chloride 1,000 mls @ 30 ml s/hr 05/23/21 08:15 05/23/21 08:54 Sodium Chloride 0.9% IV 05/24/21 08:14 30 mls/hr .Q24H TONY Administration Ondansetron HCl 4 mg 05/23/21 09:50 05/23/21 11:31 Ondansetron 2 Mg /Ml Sdv 2 Ml IVP 05/24/21 09:50 4 mg Q5M PRN Administration Nausea PACU Phase I PFSH Anesthesia PFSH: Medical History (Updated 05/23/21 @ 11:07 by Jasen Cintron MD) Cholecystitis Fatty liver Family History Grandfather CAD (coronary artery disease) Other Cancer Diabetes Hypertension Stroke Social History Smoking and tobacco status: current every day smoker cigarettes Second hand smoke exposure: No Alcohol intake: never Lives independently: Yes Household members: spouse and children Marital status: Data Anesthesia Cardiac Studies: No Data to Display
--- NOTE | 2021-05-23 14:13 | ANE.PACU2 ---
Inpatient post-anesthesia follow up: Airway intact: Yes Vital signs: Temperature 98 F Pulse Rate 91 Respiratory Rate 16 Blood Pressure 92/56 Pulse Oximetry 94 Oxygen Delivery Me thod Room Air Oxygen Flow Rate 3 Fraction of Inspir ed Oxygen Hydration adequate: Yes Nausea and vomiting: No Pain level: 2 Mental status: Baseline
== END 2021-05-23 13:00 | disposition home or self-care (01) ==
PROVIDERS: PCP Family Medicine; Visit Provider Surgery
PROC: 0FT44ZZ Resection of Gallbladder, Percutaneous Endoscopic Approach (ICD-10-PCS; CPT 47562; principal; 2021-05-23 09:30)
DX: K80.10 Calculus of gallbladder with chronic cholecystitis without obstruction (principal); Z82.49 Family history of ischemic heart disease and other diseases of the circulatory system; Z83.3 Family history of diabetes mellitus; Z79.82 Long term (current) use of aspirin; F17.210 Nicotine dependence, cigarettes, uncomplicated
CPT/HCPCS: 47562; 88304; 96365; 96372; J0330; J1100; J1170; J1644; J2405; J2704; J2710; J3010; J3490; J7030

== ENCOUNTER 2023-02-07 14:40 | Outpatient (CLI) | payer BC, SELFPAY ==
--- NOTE | 2023-02-07 14:51 | XR_ITS ---
WS: [id number] EXAMINATION: XR knee RT 1-2V [id number] REASON FOR EXAM: RT KNEE PAIN, COMPARISON: None available. ORDER DATE: 02/07/2023 3:10 PM FINDINGS: There is no sign of any acute osseous or articular abnormality. There are no specific soft tissue abn ormalities. XR/XR knee RT 1-2V [id number] IMPRESSION: No acute findings
--- NOTE | 2023-02-07 14:52 | XR_ITS ---
WS: [id number] EXAMINATION: XR knee LT 1-2V [id number] REASON FOR EXAM: LT KNEE PAIN, WORK RELATED INJURY COMPARISON: None available. ORDER DATE: 02/07/2023 3:10 PM FINDINGS: There is no sign of any acute osseous or articular abnormality. There are no specific soft tissue abn ormalities. XR/XR knee LT 1-2V [id number] IMPRESSION: No acute findings
== END 2023-02-07 14:41 | disposition home or self-care (01) ==
PROVIDERS: PCP Family Medicine; Visit Provider Nurse Practitioner Family
DX: M25.562 Pain in left knee (principal); M25.561 Pain in right knee
CPT/HCPCS: 73560